=== PATIENT | male | born 1985 | race African-American/Black ===

== ENCOUNTER 2021-03-28 22:56 | Emergency (ER) | payer OTHER ==
[~2021-03-28] VITALS: Ht 185.4 cm; Wt 83.9 kg
[2021-03-28 23:34] LABS: INFLUENZA A ANTIGEN Negative (Negative); INFLUENZA B ANTIGEN Negative (Negative)
[2021-03-29] MEDS ORDERED: IPRAT-ALBUT 0.5-3 ML INH (00:03)
[2021-03-29] MEDS ORDERED: PREDNISONE50 MG PO (00:03)
[2021-03-29] MEDS ORDERED: ZPAK PO (00:03)
[2021-03-29] MEDS ORDERED: PROAIR HFA8.5 GM INH (00:04)
[2021-03-29 01:05] VITALS: BP 127/65
== END 2021-03-29 01:05 | disposition home or self-care (01) ==
LOC: M.ERS 22:56
PROVIDERS: Personal Emergency Response Attendant
DX: S63.501A Unspecified sprain of right wrist, initial encounter (principal); Z20.822 Contact with and (suspected) exposure to COVID-19; J45.901 Unspecified asthma with (acute) exacerbation; X58.XXXA Exposure to other specified factors, initial encounter; Y93.89 Activity, other specified; Y92.89 Other specified places as the place of occurrence of the external cause; Y99.8 Other external cause status

== ENCOUNTER 2021-04-18 06:24 | Emergency (ER) | payer OTHER ==
[~2021-04-18] VITALS: Ht 185.4 cm; Wt 83.9 kg
[~2021-04-18 06:24] MED LIST: IPRAT-ALBUT 0.5-3 ML INH; PREDNISONE50 MG PO; PROAIR HFA8.5 GM INH; ZPAK PO
[2021-04-18 07:42] LABS: ABSOLUTE EOSINOPHILS 0.4 thou/uL (0.0-0.7); ABSOLUTE LYMPHOCYTES 1.5 thou/uL (0.8-5.3); ABSOLUTE MONOCYTES 0.7 thou/uL (0.0-1.2); ABSOLUTE NEUTROPHILS 3.1 thou/uL (1.6-8.1); BASOPHILS 0.6 %; EOSINOPHILS 6.7 %; HEMATOCRIT 43.8 % (42.0-52.0); HEMOGLOBIN 14.6 gm/dL (14.0-18.0); LYMPHOCYTES 26.2 %; MCHC 33.3 g/dL (28.0-37.0); MCV 102.2 fL (80.0-100.0); MONOCYTES 11.8 %; MPV 8.3 fl. (7.2-11.1); NUCLEATED RBCS 0 /100WBC; PLATELET COUNT* 233 thou/uL (150-400); POLYS 54.7 %; RBC 4.28 mil/uL (4.50-6.00); RDW-CV 12.5 % (10.5-14.5); WBC 5.6 thou/uL (4.0-11.0)
[2021-04-18 07:50] LABS: CALCIUM 8.3 mg/dL (8.5-10.1); CREATININE 1.2 mg/dL (0.6-1.3); POTASSIUM 4.1 mmol/L (3.5-5.1)
[2021-04-18 07:55] LABS: ALBUMIN 3.3 g/dL (3.4-5.0); TOTAL BILIRUBIN 1.2 mg/dL (<0.1-1.0)
[2021-04-18] MEDS ORDERED: PREDNISONE 20 M20 M1 PO (09:08)
[2021-04-18] MEDS ORDERED: VENTOLIN HFA 1818 GM INH (09:08)
[2021-04-18 09:14] VITALS: BP 139/91
--- NOTE | 2021-04-18 16:12 | EKG ---
[place] [address] ELECTROCARDIOGRAM REPORT Name: SHAJI VALENZUELA Room: [facility]#: [id number] Admission: 04/18/21 Attend Phys: Discharge: 04/18/21 Date of : 83 Date of Service: 04/18/21 0647 Report #: [id number] THIS REPORT FOR: //name// [facility] ED Test Date: 2021-04-18 Test Time: 06:47:03 Pat Name: SHAJI VALENZUELA Department: Room: Gender: [place] Operator: [facility] : 1985 Requested By: Graciela Workman Order Number: [id number] MD: George Bryant Measurements Intervals [place] Rate: 60 P: 97 [place]: 176 QRS: 91 QRSD: 85 T: 119 QT: 389 QTc: 389 Interpretive Statements Sinus rhythm Probable left atrial enlargement Probable lateral infarct, age indeterminate septal infarct, age indeterminate No previous ECG available for comparison Electronically Signed On 04-18-2021 16:12:38 CDT by George Bryant [email or web address] <ELECTRONICALLY SIGNED> By: George Bryant MD, [facility] 04/18/21 1612 0647 0647 George Bryant MD, [facility] /EPI
--- NOTE | 2021-04-18 16:13 | EKG ---
[place] [address] ELECTROCARDIOGRAM REPORT Name: SHAJI VALENZUELA Room: [facility]#: [id number] Admission: 04/18/21 Attend Phys: Discharge: 04/18/21 Date of : 83 Date of Service: 04/18/21 0742 Report #: [id number] THIS REPORT FOR: //name// [facility] ED Test Date: 2021-04-18 Test Time: 07:42:22 Pat Name: SHAJI VALENZUELA Department: Room: Gender: [employer] Supervisor: : 1985 Requested By: Andrea Heart Order Number: [id number] MD: George Bryant Measurements Intervals [place] Rate: 61 P: 76 CO: 180 QRS: 85 QRSD: 91 T: 61 QT: 390 QTc: 393 Interpretive Statements Sinus rhythm Probable left atrial enlargement septal infarct, age indeterminate Artifact in lead(s) II,III,aVR,aVL,aVF,V1,V2,V3,V4,V5,V6 Compared to ECG 04/18/2021 06:47:03 No significant changes Electronically Signed On 04-18-2021 16:13:04 CDT by George Bryant [email or web address] <ELECTRONICALLY SIGNED> By: George Bryant MD, FACC 04/18/21 1613 0742 George Bryant MD, FACC /EPI
== END 2021-04-18 09:15 | disposition home or self-care (01) ==
LOC: M.ERS 06:24
PROVIDERS: Family Medicine
DX: R55 Syncope and collapse (principal); Z20.822 Contact with and (suspected) exposure to COVID-19; R05.9 Cough, unspecified; M54.2 Cervicalgia; R51.9 Headache, unspecified; R07.89 Other chest pain; J45.909 Unspecified asthma, uncomplicated; F17.210 Nicotine dependence, cigarettes, uncomplicated

== ENCOUNTER 2021-06-22 06:00 | Emergency (ER) | payer OTHER ==
[~2021-06-22] VITALS: Ht 185.4 cm; Wt 81.7 kg
[~2021-06-22 06:00] MED LIST changes: +PREDNISONE 20 M20 M1 PO; +VENTOLIN HFA 1818 GM INH
[2021-06-22 07:00] LABS: INFLUENZA A ANTIGEN Negative (Negative); INFLUENZA B ANTIGEN Negative (Negative)
[2021-06-22] MEDS ORDERED: ADVAIR 250-501 EACH INH (07:10)
[2021-06-22 07:33] VITALS: BP 133/71
--- NOTE | 2021-06-23 12:19 | EKG ---
[place] [address] ELECTROCARDIOGRAM REPORT Name: SHAJI VALENZUELA Room: [facility]#: [id number] Admission: 06/22/21 Attend Phys: Discharge: 06/22/21 Date of : 83 Date of Service: 06/22/21 0556 Report #: [id number] THIS REPORT FOR: //name// [facility] ED Test Date: 2021-06-22 Test Time: 05:56:22 Pat Name: SHAJI VALENZUELA Department: Room: Gender: Cleaners: [place] : 1985 Requested By: Graciela Workman Order Number: [id number] MD: Ramon Estevez Measurements Intervals [place] Rate: 70 P: 70 [place]: 184 QRS: 86 QRSD: 80 T: 68 QT: 365 QTc: 394 Interpretive Statements Sinus rhythm Possible anteroseptal infarct, old compared to ECG 04/18/2021 07:42:22 No significant changes Electronically Signed On 06-23-2021 12:19:19 [employer] by Ramon Estevez [email or web address] <ELECTRONICALLY SIGNED> By: Ramon Estevez MD, FACC 06/23/21 1219 0556 0556 Ramon Estevez MD, [facility] /EPI
== END 2021-06-22 07:34 | disposition home or self-care (01) ==
LOC: M.ERS 06:00
PROVIDERS: Emergency Medicine
DX: R09.81 Nasal congestion (principal); Z20.822 Contact with and (suspected) exposure to COVID-19; J45.909 Unspecified asthma, uncomplicated; Z79.899 Other long term (current) drug therapy

== ENCOUNTER 2021-08-11 00:20 | Emergency (ER) | payer OTHER ==
[~2021-08-11] VITALS: Ht 185.4 cm; Wt 86.2 kg
[~2021-08-11 00:20] MED LIST changes: +ADVAIR 250-501 EACH INH
[2021-08-11] MEDS ORDERED: VENTOLIN HFA 1818 GM INH (01:50)
[2021-08-11 02:18] VITALS: BP 109/59
== END 2021-08-11 02:26 | disposition home or self-care (01) ==
LOC: M.ERS 00:20
DX: J45.901 Unspecified asthma with (acute) exacerbation (principal); Z20.822 Contact with and (suspected) exposure to COVID-19; F17.210 Nicotine dependence, cigarettes, uncomplicated; Z79.899 Other long term (current) drug therapy; Z91.018 Allergy to other foods